=== PATIENT | female | born 1990 | race Caucasian/White ===

== ENCOUNTER 2016-05-26 01:34 | Emergency (ER) | payer MEDICAID ==
[2016-05-26] MEDS ORDERED: DEXAMETHASONE SOD PHOS INJ 10 MG/1 ML VIAL IM ONE (03:50)
[2016-05-26] MEDS ORDERED: IBUPROFEN 600 MG TABLET PO ONE (03:50)
--- NOTE | 2016-05-26 03:54 | ER Document Report ---
ED General - General Chief Complaint: Earache, sore throat Stated Complaint: EAR PAIN Notes: Patient is a 25-year-old female presents with 2 different complaints. First complaint is of runny nose cough congestion sore throat and left ear pain. Patient says her congestion was given some better and then tonight she applied some sweet oil 2 year. Pain got worse she had burning in her ear and into her jaw. She says she feels as if there are some bubbles behind her eardrum. No fevers. Patient's second complaint of some pain over lower back. Some both sides. She says she thinks it's mainly from coughing however she's had UTIs in the past as well and wants to make sure she is not having your tract infection. She denies abdominal pain. She denies dysuria. No urinary frequency. No other complaints at this time. No direct trauma to her back. TRAVEL OUTSIDE OF THE [place] IN LAST 30 DAYS: No - Related Data Allergies/Adverse Reactions: No Known Allergies Allergy (Verified 12/06/15 08:21) Past Medical History - Social History Smoking Status: Never Smoker Frequency of alcohol use: None Drug Abuse: None Family History: Reviewed & Not Pertinent Pulmonary Medical History: Reports: Hx Asthma Denies: Hx Tuberculosis Neurological Medical History: Reports: Hx Migraine. Denies: Hx Seizures Renal/ Medical History: Reports: Hx Pelvic Inflammatory Disease. Denies: Hx Peritoneal Dialysis GI Medical History: Reports: Hx Gastroesophageal Reflux Disease, Hx Ulcer Musculoskeltal Medical History: Reports Hx Musculoskeletal Trauma Skin Medical History: Reports Hx MRSA Psychiatric Medical History: Reports: Hx Anxiety, Hx Bipolar Disorder, Hx Depression Infectious Medical History: Reports: Hx MRSA - toe Past Surgical History: Reports: Hx Cholecystectomy - Immunizations Immunizations up to date: No Hx Diphtheria, Pertussis, Tetanus Vaccination: Yes - 10/2013 Hx Pneumococcal Vaccination: 01/09/13 Review of Systems - Review of Systems Notes: My Normal Review Basic REVIEW OF SYSTEMS: CONSTITUTIONAL : Denies fever, chills, or sweats. Denies recent illness. EENT: Nasal congestion CARDIOVASCULAR: Denies chest pain. RESPIRATORY: Recurrent cough GASTROINTESTINAL: Denies abdominal pain. Denies nausea, vomiting, or diarrhea. Denies constipation. Last BM: GENITOURINARY: Denies difficulty urinating, painful urination, burning, frequency, or blood in urine. MUSCULOSKELETAL: Low back pain SKIN: Denies rash or skin lesions. NEUROLOGICAL: Denies altered mental status or loss of consciousness. Has a headache. Denies weakness or paralysis or loss of use of either side. Denies problems with gait or speech. Denies sensory or motor loss. ALL OTHER SYSTEMS REVIEWED AND NEGATIVE. Physical Exam - Vital signs Vitals: Temp Pulse BP Pulse Ox 97.9 F 84 149/90 H 97 05/26/16 02:00 05/26/16 02:00 05/26/16 02:00 05/26/16 02:00 - Notes Notes: General Appearance: Well nourished, alert, cooperative, no acute distress, mild obvious discomfort. Vitals: reviewed, See vital signs table. Head: no swelling or tenderness to the head Eyes: PERRL, EOMI, Conjuctiva clear Mouth: No decreasd moisture Throat: No tonsillar inflammation, No airway obstruction, No lymphadenopathy Ears: Normal appearing tympanic membranes. Patient has just slight erythema of the ear canal looks well despite irritation from the well that she applied. Does not look consistent with infection. Is no abnormal drainage. To bag membrane is normal appearing.neck tenderness, No thyromegaly Lungs: No wheezing, No rales, No rhonci, No accessory muscle use, good air exchange bilaterally. Heart: Normal rate, Regular rythm, No murmur, no rub Abdomen: Normal BS, soft, No rigidity, No abdominal tenderness, No guarding, no rebound, no abdominal masses, no organomegaly Back: No reproducible pain to palpation of low back. Extremities: strength 5/5 in all extremities, good pulses in all extremities, no swelling or tenderness in the extremities, no edema. Skin: warm, dry, appropriate color, no rash Neuro: speech clear, oriented x 3, normal affect, responds appropriately to questions. Course - Vital Signs Vital signs: Temp Pulse Resp BP Pulse Ox 97.9 F 84 149/90 H 97 05/26/16 02:00 05/26/16 02:00 05/26/16 02:00 05/26/16 02:00 - Laboratory Laboratory results interpreted by me: 05/26/16 04:00 Ur Leukocyte Esterase SMALL H - Transfer of Care Notes: 05/26/16 05:32 Patient will be discharged home. Urinalysis negative for infection. I suspect her back pain is just related to all the coughing and straining. Her lung olivera are clear. She does have a lot of congestion with a dry cough. She does have loss sinus pressure. I will give her a dose of Decadron. Hopefully this will help relieve some of the pressure in her sinuses which will help with pain in her ear. There is no evidence of your infection on exam. Patient encouraged return to ER shows fevers or feels worse. Patient agrees with plan and will be discharged home. Dictation of this chart was performed using voice recognition software; therefore, there may be some unintended grammatical errors. Discharge - Discharge Clinical Impression: Back pain Qualifiers: Back pain location: low back pain Chronicity: acute Back pain laterality: bilateral Sciatica presence: without sciatica Qualified Code(s): M54.5 - Low back pain URI (upper respiratory infection) Qualifiers: URI type: unspecified URI Qualified Code(s): J06.9 - Acute upper respiratory infection, unspecified Condition: Good Disposition: HOME, SELF-CARE Additional Instructions: Please take over the counter pseudophed to help with your congestion. Please take Motrin or Advil for pain. Please take these medications with food. You have been given a shot of steroids here which will hopefully help your congestion and sinus pressure. Please return to the ER immediately if you have worsening pain, fevers, redness or swelling to your face or ear, worsening back pain, leg weakness or numbness, or if you feel that you are getting worse. Please follow up with your doctor in 2-3 days for reevaluation. Forms: Return to Work
[2016-05-26 04:52] LABS: APPEARANCE,URINE SLIGHTLY-CLOUDY; BILIRUBIN,URINE NEGATIVE (NEGATIVE); GLUCOSE, URINE NEGATIVE (NEGATIVE); KETONES,URINE NEGATIVE (NEGATIVE); LEUKOCYTE ESTERASE,URINE SMALL (NEGATIVE); NITRITE,URINE NEGATIVE (NEGATIVE); PROTEIN,URINE NEGATIVE (NEGATIVE); URINE SPECIFIC GRAVITY 1.023; UROBILINOGEN,URINE NEGATIVE mg/dL (<2.0)
[2016-05-26 05:22] VITALS: BP 123/78
== END 2016-05-26 05:22 | disposition home or self-care (01) ==
LOC: ER 01:34
DX: M54.5 Low back pain (principal); J06.9 Acute upper respiratory infection, unspecified; H92.02 Otalgia, left ear; K21.9 Gastro-esophageal reflux disease without esophagitis; Z86.14 Personal history of Methicillin resistant Staphylococcus aureus infection; Z90.49 Acquired absence of other specified parts of digestive tract
CPT/HCPCS: 99283; 96372; 81001; J3490; J1100

== ENCOUNTER 2016-10-19 14:20 | Emergency (ER) | payer MEDICAID ==
--- NOTE | 2016-10-19 14:52 | ER Document Report ---
ED Medical Screen (RME) - General Chief Complaint: Sore Throat Stated Complaint: SORE THROAT Time Seen by Provider: 10/19/16 14:51 Notes: This 25-year-old female patient comes emergency room complaining of a 10 day history of pain to the roof of her mouth and the back of her throat that comes and goes and hurts when she swallows. She also has cramping in the pelvic region when she urinates. She also complained of dizziness with nausea and vomiting. I have greeted and performed a rapid initial assessment of this patient. A comprehensive ED assessment and evaluation of the patient, analysis of test results and completion of the medical decision making process will be conducted by additional ED providers. TRAVEL OUTSIDE OF THE [place] IN LAST 30 DAYS: No - Related Data Allergies/Adverse Reactions: No Known Allergies Allergy (Verified 10/19/16 14:24) Past Medical History - Social History Chew tobacco use (# tins/day): No Frequency of alcohol use: None Drug Abuse: None Pulmonary Medical History: Reports: Hx Asthma Denies: Hx Tuberculosis Neurological Medical History: Reports: Hx Migraine. Denies: Hx Seizures Renal/ Medical History: Reports: Hx Pelvic Inflammatory Disease. Denies: Hx Peritoneal Dialysis GI Medical History: Reports: Hx Gastroesophageal Reflux Disease, Hx Ulcer Musculoskeltal Medical History: Reports Hx Musculoskeletal Trauma Skin Medical History: Reports Hx MRSA Psychiatric Medical History: Reports: Hx Anxiety, Hx Bipolar Disorder, Hx Depression Infectious Medical History: Reports: Hx MRSA - toe Past Surgical History: Reports: Hx Cholecystectomy - Immunizations Immunizations up to date: No Hx Diphtheria, Pertussis, Tetanus Vaccination: Yes - 10/2013 Physical Exam - Vital signs Vitals: Temp Pulse Resp BP Pulse Ox 98.5 F 93 16 132/75 H 96 10/19/16 14:24 10/19/16 14:24 10/19/16 14:24 10/19/16 14:24 10/19/16 14:24 Course - Vital Signs Vital signs: Temp Pulse Resp BP Pulse Ox 98.5 F 93 16 132/75 H 96 10/19/16 14:24 10/19/16 14:24 10/19/16 14:24 10/19/16 14:24 10/19/16 14:24
[2016-10-19 15:18] LABS: APPEARANCE,URINE CLEAR; BILIRUBIN,URINE NEGATIVE (NEGATIVE); GLUCOSE, URINE NEGATIVE (NEGATIVE); KETONES,URINE NEGATIVE (NEGATIVE); LEUKOCYTE ESTERASE,URINE NEGATIVE (NEGATIVE); NITRITE,URINE NEGATIVE (NEGATIVE); PROTEIN,URINE NEGATIVE (NEGATIVE); UROBILINOGEN,URINE NEGATIVE mg/dL (<2.0)
--- NOTE | 2016-10-19 15:24 | ER Document Report ---
ED General - General Chief Complaint: Sore Throat Stated Complaint: SORE THROAT Time Seen by Provider: 10/19/16 14:51 Notes: This 25-year-old female patient comes emergency room complaining of a 10 day history of pain to the roof of her mouth and the back of her throat that comes and goes and hurts when she swallows. She also has cramping in the pelvic region when she urinates. She also complained of dizziness with nausea and vomiting. TRAVEL OUTSIDE OF THE [place] IN LAST 30 DAYS: No - HPI Onset: Other - 10 days Onset/Duration: Gradual, Intermittent Quality of pain: Achy Associated symptoms: Earache, Headache. denies: Nausea, Vomiting, Shortness of breath Exacerbated by: Denies Relieved by: Denies Similar symptoms previously: No Recently seen / treated by doctor: No - Related Data Allergies/Adverse Reactions: No Known Allergies Allergy (Verified 10/19/16 14:24) Past Medical History - General Information source: Patient - Social History Smoking Status: Former Smoker Chew tobacco use (# tins/day): No Frequency of alcohol use: None Drug Abuse: None Lives with: Family Family History: Reviewed & Not Pertinent Pulmonary Medical History: Reports: Hx Asthma Denies: Hx Tuberculosis Neurological Medical History: Reports: Hx Migraine. Denies: Hx Seizures Renal/ Medical History: Reports: Hx Pelvic Inflammatory Disease. Denies: Hx Peritoneal Dialysis GI Medical History: Reports: Hx Gastroesophageal Reflux Disease, Hx Ulcer Musculoskeltal Medical History: Reports Hx Musculoskeletal Trauma Skin Medical History: Reports Hx MRSA Psychiatric Medical History: Reports: Hx Anxiety, Hx Bipolar Disorder, Hx Depression Infectious Medical History: Reports: Hx MRSA - toe Past Surgical History: Reports: Hx Cholecystectomy - Immunizations Immunizations up to date: No Hx Diphtheria, Pertussis, Tetanus Vaccination: Yes - 10/2013 Hx Pneumococcal Vaccination: 01/09/13 Review of Systems - Review of Systems Constitutional: No symptoms reported EENT: See HPI Cardiovascular: No symptoms reported Respiratory: No symptoms reported Gastrointestinal: No symptoms reported Genitourinary: See HPI Female Genitourinary: No symptoms reported. denies: Vaginal discharge, Vaginal bleeding, Vaginal odor, Painful intercourse Musculoskeletal: No symptoms reported Skin: No symptoms reported Hematologic/Lymphatic: No symptoms reported Neurological/Psychological: No symptoms reported Physical Exam - Vital signs Vitals: Temp Pulse Resp BP Pulse Ox 98.5 F 93 16 132/75 H 96 10/19/16 14:24 10/19/16 14:24 10/19/16 14:24 10/19/16 14:24 10/19/16 14:24 Interpretation: Normal - General General appearance: Appears well, Alert In distress: None Notes: morbidly obese - HEENT Head: Normocephalic, Atraumatic Eyes: Normal Conjunctiva: Normal Pupils: PERRL Tympanic membrane: Serous effusion - right Sinus: Normal Nasal: Normal Mucous membranes: Moist Pharynx: Normal Neck: Normal, Supple. No: Lymphadenopathy - Respiratory Respiratory status: No respiratory distress Chest status: Nontender Breath sounds: Normal Chest palpation: Normal - Cardiovascular Rhythm: Regular Heart sounds: Normal auscultation Murmur: No - Abdominal Inspection: Normal Distension: No distension Bowel sounds: Normal Tenderness: Tender - mild suprapubic tenderness. No: Adams's sign, Guarding Organomegaly: No organomegaly - Back Back: Normal, Nontender - Extremities General upper extremity: Normal inspection, Nontender, Normal color, Normal ROM , Normal temperature General lower extremity: Normal inspection, Nontender, Normal color, Normal ROM , Normal temperature, Normal weight bearing. No: Viviana's sign - Neurological Neuro grossly intact: Yes Cognition: Normal Orientation: AAOx4 [place] Coma Scale Eye Opening: Spontaneous [place] Coma Scale Verbal: Oriented [place] Coma Scale Motor: Obeys Commands [place] Coma Scale Total: 15 Speech: Normal Motor strength normal: LUE, RUE, LLE, RLE Sensory: Normal - Psychological Associated symptoms: Normal affect, Normal mood - Skin Skin Temperature: Warm Skin Moisture: Dry Skin Color: Normal Course - Re-evaluation Re-evalutation: 10/19/16 16:12 rurinalysis unremarkable, UHCG negative. rapid strep negative. wet mount + BV. all results reviewed with patient. based on history and physical exam, I estimate low risk for ludwigs, peritonsillar abscess, acute appendicitis, bowel obstruction, perforated diverticua, incarcerated hernia, PID, ectopic or tub-ovarian abscess. There is no evidence of peritonitis, sepsis or toxicity. pt is stable for discharge and f/u with primary care. - Vital Signs Vital signs: Temp Pulse Resp BP Pulse Ox 98.5 F 93 16 132/75 H 96 10/19/16 14:24 10/19/16 14:24 10/19/16 14:24 10/19/16 14:24 10/19/16 14:24 - Laboratory Laboratory results interpreted by me: 10/19/16 14:56 Urine Ascorbic Acid 40 H Discharge - Discharge Clinical Impression: Sore throat, Bacterial vaginosis Condition: Stable Disposition: HOME, SELF-CARE Instructions: Sore Throat ([facility]), Vaginosis, Bacterial ([facility]), Antibiotic Therapy ([facility]) Additional Instructions: Your rapid strep is negative Throat culture is pending. We will call you if further treatment is needed Recommend antihistamine/decongestant, lozenges and salt water gargles for discomfort Your wet mount is positive for Bacterial Vaginosis, Take antibiotic as prescribed Follow up with primary care if symptoms persist Return to ER for any worsening Prescriptions: Fluconazole [Diflucan] 150 mg PO ONCE PRN #1 tablet PRN Reason: Metronidazole [Flagyl 500 mg Tablet] 500 mg PO BID #14 tablet
[2016-10-19 16:35] VITALS: BP 119/70
[2016-10-19 16:47] LABS: CHLAM PCR NOT DETECTED (NOT DETECT)
== END 2016-10-19 16:36 | disposition home or self-care (01) ==
LOC: ER 14:20
DX: J02.9 Acute pharyngitis, unspecified (principal); N76.0 Acute vaginitis; B96.89 Other specified bacterial agents as the cause of diseases classified elsewhere; H92.09 Otalgia, unspecified ear; R51 Headache; Z86.14 Personal history of Methicillin resistant Staphylococcus aureus infection; Z90.49 Acquired absence of other specified parts of digestive tract
CPT/HCPCS: 81001; 81025; 87070; 87210; 87491; 87591; 87880; 99283

== ENCOUNTER 2016-12-02 16:29 | Emergency (ER) | payer MEDICAID ==
[2016-12-02 18:54] LABS: ABSOLUTE EOSINOPHILS # (AUTO) 0.2 10^3/uL (0.0-0.6); ABSOLUTE LYMPHOCYTES (AUTO) 2.3 10^3/uL (0.5-4.7); ABSOLUTE MONOCYTES (AUTO) 0.7 10^3/uL (0.1-1.4); ABSOLUTE NEUT (AUTO) 4.7 10^3/uL (1.7-8.2); BASOPHILS % (AUTO) 0.3 % (0-2); EOSINOPHILS % (AUTO) 2.6 % (0-6); HEMATOCRIT 42.4 % (36.0-47.0); HEMOGLOBIN 14.2 g/dL (12.0-15.5); HGB HCT DIFFERENCE 0.2; LYMPHOCYTES % (AUTO) 29.1 % (13-45); MEAN CORPUSCULAR HEMOGLOBIN 31.1 pg (27.0-33.4); MEAN CORPUSCULAR HGB CONC 33.4 g/dL (32.0-36.0); MEAN CORPUSCULAR VOLUME 93 fl (80-97); MONOCYTES % (AUTO) 8.4 % (3-13); RED BLOOD COUNT 4.55 10^6/uL (3.72-5.28); SEGMENTED NEUTROPHILS % (AUTO) 59.6 % (42-78); WHITE BLOOD COUNT 7.9 10^3/uL (4.0-10.5)
[2016-12-02 18:56] LABS: APPEARANCE,URINE CLEAR; BILIRUBIN,URINE NEGATIVE (NEGATIVE); GLUCOSE, URINE NEGATIVE (NEGATIVE); KETONES,URINE NEGATIVE (NEGATIVE); LEUKOCYTE ESTERASE,URINE NEGATIVE (NEGATIVE); NITRITE,URINE NEGATIVE (NEGATIVE); PROTEIN,URINE NEGATIVE (NEGATIVE); URINE SPECIFIC GRAVITY 1.028; UROBILINOGEN,URINE NEGATIVE mg/dL (<2.0)
[2016-12-02 19:11] LABS: ALANINE AMINOTRANSFERASE 59 U/L (9-52); ALBUMIN 4.1 g/dL (3.5-5.0); ALKALINE PHOSPHATASE 153 U/L (38-126); ANION GAP 11 (5-19); ASPARTATE AMINO TRANSFERASE 36 U/L (14-36); BILIRUBIN,DIRECT 0.2 mg/dL (0.0-0.4); BILIRUBIN,TOTAL 0.9 mg/dL (0.2-1.3); BLOOD UREA NITROGEN 10 mg/dL (7-20); CALCIUM 10.2 mg/dL (8.4-10.2); CARBON DIOXIDE 30 mmol/L (22-30); CHLORIDE 105 mmol/L (98-107); CREATININE RESULT 0.81 mg/dL (0.52-1.25); GLUCOSE 84 mg/dL (75-110); LIPASE 89.5 U/L (23-300); POTASSIUM 4.3 mmol/L (3.6-5.0); SODIUM 146.3 mmol/L (137-145); TOTAL PROTEIN 6.6 g/dL (6.3-8.2)
--- NOTE | 2016-12-02 19:19 | ER Document Report ---
ED General - General Chief Complaint: Abdominal Pain Stated Complaint: ABDOMINAL PAIN,DIARRHEA,NAUSEA Time Seen by Provider: 12/02/16 17:57 Mode of Arrival: Ambulatory Information source: Patient Notes: Patient complains of 2 days of epigastric pain. It is a cramping and sharp sensation. It does radiate to her back. It is worse with eating or drinking and better with rest. It is been severe and intermittent. She denies any vaginal discharge or bleeding. She is currently breast-feeding. She states she has had a previous cholecystectomy and multiple similar abdominal pains but is never been referred to gastroneurology. TRAVEL OUTSIDE OF THE [place] IN LAST 30 DAYS: No - Related Data Allergies/Adverse Reactions: No Known Allergies Allergy (Verified 12/02/16 16:43) Past Medical History - General Information source: Patient - Social History Smoking Status: Never Smoker Frequency of alcohol use: Occasional Drug Abuse: None Family History: Reviewed & Not Pertinent Pulmonary Medical History: Reports: Hx Asthma Denies: Hx Tuberculosis Neurological Medical History: Reports: Hx Migraine. Denies: Hx Seizures Renal/ Medical History: Reports: Hx Pelvic Inflammatory Disease. Denies: Hx Peritoneal Dialysis GI Medical History: Reports: Hx Gastroesophageal Reflux Disease, Hx Ulcer Musculoskeltal Medical History: Reports Hx Musculoskeletal Trauma Skin Medical History: Reports Hx MRSA Psychiatric Medical History: Reports: Hx Anxiety, Hx Bipolar Disorder, Hx Depression Infectious Medical History: Reports: Hx MRSA - toe Past Surgical History: Reports: Hx Cholecystectomy - Immunizations Immunizations up to date: No Hx Diphtheria, Pertussis, Tetanus Vaccination: Yes - 10/2013 Hx Pneumococcal Vaccination: 01/09/13 Review of Systems - Review of Systems Constitutional: denies: Chills, Fever Cardiovascular: denies: Chest pain, Palpitations Respiratory: denies: Cough, Short of breath -: Yes All other systems reviewed and negative Physical Exam - Vital signs Vitals: Temp Pulse BP Pulse Ox 98.7 F 101 H 135/86 H 93 12/02/16 16:42 12/02/16 16:42 12/02/16 16:42 12/02/16 16:42 Interpretation: Hypertensive - General General appearance: Appears well, Alert - HEENT Head: Normocephalic, Atraumatic Eyes: Normal Pupils: PERRL - Respiratory Respiratory status: No respiratory distress Chest status: Nontender Breath sounds: Normal Chest palpation: Normal - Cardiovascular Rhythm: Regular Heart sounds: Normal auscultation Murmur: No - Abdominal Inspection: Normal Distension: No distension Bowel sounds: Normal Tenderness: Nontender Organomegaly: No organomegaly - Back Back: Normal, Nontender - Extremities General upper extremity: Normal inspection, Nontender, Normal color, Normal ROM , Normal temperature General lower extremity: Normal inspection, Nontender, Normal color, Normal ROM , Normal temperature, Normal weight bearing. No: Viviana's sign - Neurological Neuro grossly intact: Yes Cognition: Normal Orientation: AAOx4 [place] Coma Scale Eye Opening: Spontaneous [place] Coma Scale Verbal: Oriented [place] Coma Scale Motor: Obeys Commands [place] Coma Scale Total: 15 Speech: Normal Motor strength normal: LUE, RUE, LLE, RLE Sensory: Normal - Psychological Associated symptoms: Normal affect, Normal mood - Skin Skin Temperature: Warm Skin Moisture: Dry Skin Color: Normal Course - Vital Signs Vital signs: Temp Pulse Resp BP Pulse Ox 98.7 F 101 H 135/86 H 93 12/02/16 16:42 12/02/16 16:42 12/02/16 16:42 12/02/16 16:42 - Laboratory Result Diagrams: 12/02/16 18:30 12/02/16 18:30 Laboratory results interpreted by me: 12/02/16 12/02/16 18:30 18:30 Sodium 146.3 H ALT 59 H Alkaline Phosphatase 153 H Urine Ascorbic Acid 40 H Discharge - Discharge Clinical Impression: Acute abdominal pain Condition: Stable Disposition: HOME, SELF-CARE Instructions: Abdominal Pain ([facility]), Oral Narcotic Medication ([facility]) Additional Instructions: Your blood pressure is mildly elevated please have this rechecked within 1 week by your doctor. Please discuss referral to gastroenterology with your doctor. Prescriptions: Hydrocodone/Acetaminophen [[place] 5-325 mg Tablet] 1 tab PO Q6 PRN #8 tablet PRN Reason: Forms: Elevated Blood Pressure
[2016-12-02 19:35] VITALS: BP 134/81
== END 2016-12-02 19:36 | disposition home or self-care (01) ==
LOC: ER 16:29
DX: R10.13 Epigastric pain (principal); J45.909 Unspecified asthma, uncomplicated; Z87.42 Personal history of other diseases of the female genital tract; Z90.49 Acquired absence of other specified parts of digestive tract; Z87.19 Personal history of other diseases of the digestive system; Z86.14 Personal history of Methicillin resistant Staphylococcus aureus infection
CPT/HCPCS: 36415; 80053; 81001; 81025; 83690; 85025; 99284

== ENCOUNTER 2017-02-07 10:49 | Emergency (ER) | payer MEDICAID ==
[2017-02-07 10:54] VITALS: BP 127/85
[2017-02-07] MEDS ORDERED: ONDANSETRON 4 MG TAB.RAPDIS PO ONE (11:59)
[2017-02-07] MEDS ORDERED: AMOXICILLIN TRIHYDRATE 500 MG CAPSULE PO ONE (12:00)
[2017-02-07] MEDS ORDERED: ACETAMINOPHEN 325 MG TABLET PO ONE (12:00)
--- NOTE | 2017-02-07 12:02 | ER Document Report ---
HPI - HPI Patient complains to provider of: Left ear pain Onset: This morning Onset/Duration: Gradual Quality of pain: Achy Pain Level: 3 Context: Patient presents complaining of left ear and jaw pain since 5:00 this morning. Patient states the pain is made her nauseous and she has retched although not vomited. Patient denies any diarrhea. Patient does report fever of 1012 at home this morning. Patient did take Motrin at home to treat her pain symptoms. Associated Symptoms: Earache, Fever, Nausea. denies: Nonproductive cough, Productive cough, Vomiting, Sore throat Exacerbated by: Denies Relieved by: Denies Similar symptoms previously: Yes Recently seen / treated by doctor: No - ROS ROS below otherwise negative: Yes Systems Reviewed and Negative: Yes All other systems reviewed and negative - CONSTITUTIONAL Constitutional: REPORTS: Fever. DENIES: Chills - EENT EENT: REPORTS: Ear Pain. DENIES: Sore Throat, Eye problems - NEURO Neurology: DENIES: Headache, Weakness, Vision blurred, Dizzinesss / Vertigo - CARDIOVASCULAR Cardiovascular: DENIES: Chest pain - RESPIRATORY Respiratory: DENIES: Trouble Breathing, Coughing - GASTROINTESTINAL Gastrointestinal: REPORTS: Nausea. DENIES: Abdominal Pain, Black / Bloody Stools - URINARY Urinary: DENIES: Dysuria, Urgency, Frequency - MUSCULOSKELETAL Musculoskeletal: DENIES: Extremity pain - DERM Skin Color: Normal Skin Problems: None Past Medical History - General Information source: Patient - Social History Smoking Status: Never Smoker Chew tobacco use (# tins/day): No Frequency of alcohol use: None Drug Abuse: None Occupation: None Lives with: Family Family History: Reviewed & Not Pertinent Patient has suicidal ideation: No Patient has homicidal ideation: No Pulmonary Medical History: Reports: Hx Asthma Denies: Hx Tuberculosis Neurological Medical History: Reports: Hx Migraine. Denies: Hx Seizures Renal/ Medical History: Reports: Hx Pelvic Inflammatory Disease. Denies: Hx Peritoneal Dialysis GI Medical History: Reports: Hx Gastroesophageal Reflux Disease, Hx Ulcer Musculoskeltal Medical History: Reports Hx Musculoskeletal Trauma Skin Medical History: Reports Hx MRSA Psychiatric Medical History: Reports: Hx Anxiety, Hx Bipolar Disorder, Hx Depression Infectious Medical History: Reports: Hx MRSA - toe Past Surgical History: Reports: Hx Cholecystectomy - Immunizations Immunizations up to date: No Hx Diphtheria, Pertussis, Tetanus Vaccination: Yes - 10/2013 Hx Pneumococcal Vaccination: 01/09/13 Vertical Provider Document - CONSTITUTIONAL Agree With Documented VS: Yes Exam Limitations: No Limitations General Appearance: WD/WN, No Apparent Distress - INFECTION CONTROL TRAVEL OUTSIDE OF THE [place] IN LAST 30 DAYS: No - HEENT HEENT: Atraumatic, Normocephalic, Tympanic Membrane Red, Tympanic Membrane Bulging. negative: Pharyngeal Exudate, Pharyngeal Tenderness, Pharyngeal Erythema Notes: No mastoid tenderness or swelling - NECK Neck: Normal Inspection, Supple. negative: Lymphadenopathy-Left, Lymphadenopathy-Right - RESPIRATORY Respiratory: Breath Sounds Normal, No Respiratory Distress O2 Sat by Pulse Oximetry: 99 - CARDIOVASCULAR Cardiovascular: Regular Rate, Regular Rhythm - GI/ABDOMEN Gastrointestinal: Abdomen Soft, Abdomen Non-Tender - BACK Back: Normal Inspection. negative: CVA Tenderness-Right, CVA Tenderness-Left - MUSCULOSKELETAL/EXTREMETIES Musculoskeletal/Extremeties: MAEW - NEURO Level of Consciousness: Awake, Alert, Appropriate Motor/Sensory: No Motor Deficit - DERM Integumentary: Warm, Dry Course - Vital Signs Vital signs: Temp Pulse Resp BP Pulse Ox 98.5 F 81 18 127/85 H 99 02/07/17 10:53 02/07/17 10:53 02/07/17 10:53 02/07/17 10:53 02/07/17 10:53 Discharge - Discharge Clinical Impression: Nausea Otitis media Qualifiers: Otitis media type: unspecified Chronicity: acute Qualified Code(s): H66.90 - Otitis media, unspecified, unspecified ear Condition: Stable Disposition: HOME, SELF-CARE Instructions: Acetaminophen, Amoxicillin ([facility]), Otitis Media ([facility]) Additional Instructions: Return immediately for any new or worsening symptoms Followup with your primary care provider, call tomorrow to make a followup appointment Follow-up with an ears nose and throat specialist for any continued problems Prescriptions: Amoxicillin 500 mg PO TID #30 tablet Naproxen [Naprosyn 250 Nmg Tablet] 1 tab PO BID #14 tablet Referrals: [facility] [Provider Group] - Follow up as needed [facility] [Provider Group] - Follow up as needed
== END 2017-02-07 12:13 | disposition home or self-care (01) ==
LOC: ER 10:49
DX: H66.90 Otitis media, unspecified, unspecified ear (principal); H92.02 Otalgia, left ear; R11.0 Nausea; R50.9 Fever, unspecified; R68.84 Jaw pain; J45.909 Unspecified asthma, uncomplicated; Z86.14 Personal history of Methicillin resistant Staphylococcus aureus infection
CPT/HCPCS: 99283; J3490; S0119

== ENCOUNTER 2017-05-24 19:06 | Emergency (ER) | payer MEDICAID ==
--- NOTE | 2017-05-24 19:47 | ER Document Report ---
ED GI/ - General Chief Complaint: Vaginal Bleeding Stated Complaint: VAGINAL SPOTTING/CRAMPING Time Seen by Provider: 05/24/17 19:42 Mode of Arrival: Ambulatory Information source: Patient Notes: 26 yo ex smoker female started pink spotting and cramping after moving boxes last night until this morning. Intermittent now. Thinks she 6-8 weeks, not sure. Went to health dept to confirm last week. . No dysuria, no vaginal discharge, normal paps, chlamydia as teenager, no ovarian cyst. No sex recently. Also c/o right anterior lower leg muscle, thinks its a pulled muscle, started when sandel slipped and knee went a "weird" way and it has been hurting ever since. TRAVEL OUTSIDE OF THE [place] IN LAST 30 DAYS: No - Related Data Allergies/Adverse Reactions: No Known Allergies Allergy (Verified 02/07/17 10:49) Past Medical History - General Information source: Patient Last Menstrual Period: 03/2017 - Social History Smoking Status: Never Smoker Frequency of alcohol use: None Drug Abuse: None Family History: Reviewed & Not Pertinent Patient has suicidal ideation: No Patient has homicidal ideation: No Pulmonary Medical History: Reports: Hx Asthma Denies: Hx Tuberculosis Neurological Medical History: Reports: Hx Migraine. Denies: Hx Seizures Renal/ Medical History: Reports: Hx Pelvic Inflammatory Disease. Denies: Hx Peritoneal Dialysis GI Medical History: Reports: Hx Gastroesophageal Reflux Disease, Hx Ulcer Musculoskeltal Medical History: Reports Hx Musculoskeletal Trauma Skin Medical History: Reports Hx MRSA Psychiatric Medical History: Reports: Hx Anxiety, Hx Bipolar Disorder, Hx Depression Infectious Medical History: Reports: Hx MRSA - toe Past Surgical History: Reports: Hx Cholecystectomy - Immunizations Immunizations up to date: No Hx Diphtheria, Pertussis, Tetanus Vaccination: Yes - 10/2013 Hx Pneumococcal Vaccination: 01/09/13 Review of Systems - Review of Systems Constitutional: No symptoms reported EENT: No symptoms reported Cardiovascular: No symptoms reported Respiratory: No symptoms reported Gastrointestinal: No symptoms reported Genitourinary: No symptoms reported Female Genitourinary: See HPI Musculoskeletal: No symptoms reported Skin: No symptoms reported Hematologic/Lymphatic: No symptoms reported Neurological/Psychological: No symptoms reported Physical Exam - Vital signs Vitals: Temp Pulse Resp BP Pulse Ox 98.2 F 114 H 18 144/83 H 96 05/24/17 19:23 05/24/17 19:23 05/24/17 19:23 05/24/17 19:23 05/24/17 19:23 Interpretation: Normal - Notes Notes: obese - General General appearance: Appears well, Alert - HEENT Head: Normocephalic, Atraumatic Eyes: Normal Conjunctiva: Normal Pupils: PERRL Neck: Supple. No: Lymphadenopathy - Respiratory Respiratory status: No respiratory distress Chest status: Nontender Breath sounds: Normal Chest palpation: Normal - Cardiovascular Rhythm: Regular Heart sounds: Normal auscultation Murmur: No - Abdominal Inspection: Normal Distension: No distension Bowel sounds: Normal Tenderness: Nontender. No: Tender Organomegaly: No organomegaly - Back Back: Normal, Nontender. No: CVA tenderness - Extremities General upper extremity: Normal inspection, Nontender, Normal color, Normal ROM , Normal temperature General lower extremity: Normal inspection, Nontender, Normal color, Normal ROM , Normal temperature, Normal weight bearing. No: Viviana's sign Thigh: Tender - tender over distal anterior right thigh muscle, no erythema or swelling - Neurological Neuro grossly intact: Yes Cognition: Normal Orientation: AAOx4 [place] Coma Scale Eye Opening: Spontaneous [place] Coma Scale Verbal: Oriented Lyndsey Coma Scale Motor: Obeys Commands [place] Coma Scale Total: 15 Speech: Normal Motor strength normal: LUE, RUE, LLE, RLE Sensory: Normal - Psychological Associated symptoms: Normal affect, Normal mood - Skin Skin Temperature: Warm Skin Moisture: Dry Skin Color: Normal Course - Re-evaluation Re-evalutation: 05/24/17 22:01 Wet prep shows bacterial vaginosis so I will treat with metronidazole 500 mg twice daily for 1 week, gonorrhea and Chlamydia test are pending she will call me in several hours for those results. The ultrasound shows a 5 week gestational sac in the cervical canal without yolk sac or pole. I explained to this patient about the impending miscarriage. Blood type is A positive so she does not need a RhoGam, urinalysis is negative. Patient states that her pain is mild but she would appreciate pain medication and she is still only spotting no heavy bleeding or clotting. We will have the patient repeat her serum quantitative test on Thursday. 05/24/17 22:05 Diastolic blood pressure is 87 I have asked the patient to repeat it tomorrow because that is elevated. There is no protein in the urine. I suspect that this is due to stress, although I reviewed some of her previous blood pressures in the emergency department such as January 2017 and the diastolic was 83 and 85. 05/24/17 22:13 - Vital Signs Vital signs: Temp Pulse Resp BP Pulse Ox 98.6 F 88 16 133/87 H 99 05/24/17 22:08 05/24/17 22:08 05/24/17 22:08 05/24/17 22:08 05/24/17 22:08 - Laboratory Result Diagrams: 05/24/17 20:22 Laboratory results interpreted by me: 05/24/17 05/24/17 05/24/17 20:22 20:22 20:22 RDW 14.1 H Beta HCG, Quant 265.19 H Urine Urobilinogen 2.0 H Ur Leukocyte Esterase SMALL H Discharge - Discharge Clinical Impression: Vaginal bleeding, Incomplete miscarriage, Bacterial vaginosis, Elevated blood pressure reading, right anterior thigh muscle strain Condition: Good Disposition: HOME, SELF-CARE Instructions: Metronidazole ([facility]), Miscarriage Impending ([facility]), [facility], Oral Narcotic Medication ([facility]), Vaginosis, Bacterial ([facility]), [facility] ([facility]), Muscle Strain ([facility]) Additional Instructions: Return to the emergency room if you have worsening pain or heavy vaginal bleeding recheck your blood pressure tomorrow, the bottom number is elevated which it has been here in the ER in the past. You may need blood pressure medication. Follow-up repeat serum quantitative test on Thursday to make sure that it is going down Follow-up with the health department Prescriptions: Hydrocodone Bit/Acetaminophen [Hydrocodon-Acetaminophen 5-325] 1 each PO Q4HP PRN #10 tablet PRN Reason: Metronidazole [Flagyl 500 mg Tablet] 500 mg PO BID #14 tablet Forms: Follow-Up Laboratory Testing Referrals: JOEL MCCLOUD PA-C [Primary Care Provider] - Follow up tomorrow (for your blood pressure )
[2017-05-24 20:49] LABS: ABSOLUTE EOSINOPHILS # (AUTO) 0.4 10^3/uL (0.0-0.6); ABSOLUTE LYMPHOCYTES (AUTO) 2.5 10^3/uL (0.5-4.7); ABSOLUTE MONOCYTES (AUTO) 0.7 10^3/uL (0.1-1.4); ABSOLUTE NEUT (AUTO) 5.8 10^3/uL (1.7-8.2); BASOPHILS % (AUTO) 0.4 % (0-2); EOSINOPHILS % (AUTO) 4.1 % (0-6); HEMATOCRIT 39.6 % (36.0-47.0); HEMOGLOBIN 13.4 g/dL (12.0-15.5); MEAN CORPUSCULAR HEMOGLOBIN 30.9 pg (27.0-33.4); MEAN CORPUSCULAR HGB CONC 33.9 g/dL (32.0-36.0); MEAN CORPUSCULAR VOLUME 91 fl (80-97); MONOCYTES % (AUTO) 7.1 % (3-13); PLATELET COUNT 200 10^3/uL (150-450); RED BLOOD COUNT 4.34 10^6/uL (3.72-5.28); RED CELL DISTRIBUTION WIDTH 14.1 % (11.5-14.0); SEGMENTED NEUTROPHILS % (AUTO) 61.4 % (42-78); TOTAL CELLS COUNTED % (AUTO) 100 %; WHITE BLOOD COUNT 9.4 10^3/uL (4.0-10.5)
[2017-05-24 20:50] LABS: T.VAGINALIS (WET MOUNT) NO TRICHOMONAS SEEN; YEAST (WET MOUNT) BUDDING YEAST SEEN
[2017-05-24 20:51] LABS: BACTERIA (WET MOUNT) 4+ BACTERIA SEEN; EPITHELIALS (WET MOUNT) 4+ EPITHELIALS SEEN; RBCS (WET MOUNT) NO RBCS SEEN; WBCS (WET MOUNT) 3+ WBCS SEEN
[2017-05-24 21:15] LABS: BILIRUBIN,URINE NEGATIVE (NEGATIVE); COLOR,URINE YELLOW; GLUCOSE, URINE NEGATIVE (NEGATIVE); KETONES,URINE NEGATIVE (NEGATIVE); LEUKOCYTE ESTERASE,URINE SMALL (NEGATIVE); NITRITE,URINE NEGATIVE (NEGATIVE); PROTEIN,URINE NEGATIVE (NEGATIVE)
[2017-05-24 21:18] LABS: APPEARANCE,URINE CLEAR
--- NOTE | 2017-05-24 21:44 | RADIOLOGY REPORT (SQ) ---
EXAM DESCRIPTION: U/S OB TRANSVAG W/DOPPLER COMPLETED DATE/TIME: 05/24/2017 9:33 pm REASON FOR STUDY: spotting COMPARISON: None. TECHNIQUE: Transabdominal static and realtime grayscale images acquired of the pelvis. Additional se lected spectral and color Doppler images recorded. All images stored on PACs. bHCG: Not available. LIMITATIONS: None. FINDINGS: UTERUS: No masses. No anomalies. GESTATIONAL SAC: Within the cervical canal. 5 weeks 1 day YOLK SAC: No POLE: No RIGHT ADNEXA: Ovary not identified. No adnexal free fluid. No adnexal masses. LEFT ADNEXA: Normal ovary with normal vascular flow. No adnexal free fluid. No adnexal masses. FREE FLUID: None. OTHER: No other significant finding. IMPRESSION: Gestational sac within the cervical canal. BHCG LEVEL APPROPRIATE FOR ENDOMETRIAL FINDINGS. CONSIDER F/U BHCG AND/OR ULTRASOUND FOR VERIFICATION AND TO EXCLUDE ECTOPIC . Trimester of : First - 0 to 13 weeks. TECHNICAL DOCUMENTATION: JOB ID: [id number]- All Rights Reserved Reading location - IP/workstation name: [email or web address]
[2017-05-24] MEDS ORDERED: HYDROCODONE/ACETAMINOPHEN 5-325 MG (6 TAB/ER DISP) PO PRN (21:57)
[2017-05-24] MEDS ORDERED: ONDANSETRON ODT 4 MG TAB (6 TAB/ER DISP) PO PRN (22:00)
[2017-05-24 22:08] VITALS: BP 133/87
[2017-05-24 22:23] LABS: CHLAM PCR NOT DETECTED (NOT DETECT); GON PCR NOT DETECTED (NOT DETECT)
== END 2017-05-24 22:22 | disposition home or self-care (01) ==
LOC: ER 19:06
DX: O03.4 Incomplete spontaneous abortion without complication (principal); B96.89 Other specified bacterial agents as the cause of diseases classified elsewhere; R03.0 Elevated blood-pressure reading, without diagnosis of hypertension; S76.811A Strain of other specified muscles, fascia and tendons at thigh level, right thigh, initial encounter; M79.604 Pain in right leg; X50.9XXA Other and unspecified overexertion or strenuous movements or postures, initial encounter; W01.0XXA Fall on same level from slipping, tripping and stumbling without subsequent striking against object, initial encounter; Z3A.00 Weeks of gestation of pregnancy not specified
CPT/HCPCS: 36415; 76817; 81001; 84702; 85025; 86900; 86901; 87086; 87210; 87491; 87591; 93976; 99284

== ENCOUNTER → 2017-05-26 | Outpatient (CLI) | payer MEDICAID | LOC: LAB 08:33 | PROVIDERS: ATTEND Nurse Practitioner Family | DX: O20.9 Hemorrhage in early pregnancy, unspecified (principal) | CPT/HCPCS: 36415; 84702 ==

== ENCOUNTER 2017-07-06 06:48 | Emergency (ER) | payer MEDICAID ==
[2017-07-06 06:55] VITALS: BP 134/78
--- NOTE | 2017-07-06 07:05 | ER Document Report ---
ED General - General Chief Complaint: Ear Pain Stated Complaint: LEFT EAR PAIN Mode of Arrival: Ambulatory Information source: Patient TRAVEL OUTSIDE OF THE [place] IN LAST 30 DAYS: No - HPI Patient complains to provider of: left ear pain x 3 days. pt is 10 weeks . no vag bleed,pain Onset: Other - x 2 days ago Onset/Duration: Sudden Quality of pain: Achy, Fullness Severity: Moderate Pain Level: 2 Associated symptoms: Allergy/hay fever, Chills, Earache, Rhinnorhea. denies: Body/muscle aches, Chest pain, Nonproductive cough, Productive cough, Diarrhea, Drooling, Fever, Headache, Hoarseness, Hurts to breath, Leg swelling, Nausea, Vomiting, Sinus pain/drainage, Shortness of breath, Slow to respond, Sore throat , Sweating, Weakness, Other Exacerbated by: Denies Relieved by: Denies Similar symptoms previously: Yes - hx of seasonal allergies Recently seen / treated by doctor: No - Related Data Allergies/Adverse Reactions: No Known Allergies Allergy (Verified 02/07/17 10:49) Past Medical History - General Information source: Patient - Social History Smoking Status: Former Smoker Chew tobacco use (# tins/day): No Frequency of alcohol use: None Drug Abuse: None Family History: Reviewed & Not Pertinent Patient has suicidal ideation: No Patient has homicidal ideation: No Pulmonary Medical History: Reports: Hx Asthma Denies: Hx Tuberculosis Neurological Medical History: Reports: Hx Migraine. Denies: Hx Seizures Renal/ Medical History: Reports: Hx Pelvic Inflammatory Disease. Denies: Hx Peritoneal Dialysis GI Medical History: Reports: Hx Gastroesophageal Reflux Disease, Hx Ulcer Musculoskeltal Medical History: Reports Hx Musculoskeletal Trauma Skin Medical History: Reports Hx MRSA Psychiatric Medical History: Reports: Hx Anxiety, Hx Bipolar Disorder, Hx Depression Infectious Medical History: Reports: Hx MRSA - toe Past Surgical History: Reports: Hx Cholecystectomy - Immunizations Immunizations up to date: No Hx Diphtheria, Pertussis, Tetanus Vaccination: Yes - 10/2013 Hx Pneumococcal Vaccination: 01/09/13 Review of Systems - Review of Systems Constitutional: No symptoms reported EENT: See HPI Cardiovascular: No symptoms reported Respiratory: No symptoms reported Gastrointestinal: No symptoms reported Genitourinary: No symptoms reported Female Genitourinary: No symptoms reported Musculoskeletal: No symptoms reported Skin: No symptoms reported Hematologic/Lymphatic: No symptoms reported Neurological/Psychological: No symptoms reported Physical Exam - Vital signs Vitals: Temp Pulse Resp BP Pulse Ox 97.7 F 86 16 134/78 H 99 07/06/17 06:54 07/06/17 06:54 07/06/17 06:54 07/06/17 06:54 07/06/17 06:54 - Notes Notes: PHYSICAL EXAMINATION: GENERAL: Well-appearing, well-nourished and in no acute distress. HEAD: Atraumatic, normocephalic. EYES: Pupils equal round and reactive to light, extraocular movements intact, conjunctiva are normal. ENT: TM on Left with erythema and intact. Right TM with serous effusion, no erythema. Nares boggy bilaterally, oropharynx with erythema without exudates. Moist mucous membranes. NECK: Normal range of motion, supple without lymphadenopathy LUNGS: Breath sounds clear to auscultation bilaterally and equal. No wheezes rales or rhonchi. HEART: Regular rate and rhythm without murmurs ABDOMEN: Soft, nontender, nondistended abdomen. No guarding, no rebound. No masses appreciated. Female : deferred Musculoskeletal: Normal range of motion, no pitting or edema. No cyanosis. NEUROLOGICAL: Cranial nerves grossly intact. Normal speech, normal gait. Normal sensory, motor exams PSYCH: Normal mood, normal affect. SKIN: Warm, Dry, normal turgor, no rashes or lesions noted. Course - Re-evaluation Re-evalutation: 07/06/17 08:20 Presentation is most consistent with an acute otitis media. Clinical history as well as exam is most consistent with this diagnosis. Based on history and examination do not suspect an acute meningitis, encephalitis, peritonsillar abscess, or retropharyngeal abscess. Child is otherwise well in appearance, no acute distress. Vitals otherwise within normal limits. The patient will be started on amoxicillin twice a day for 10 days. At this time will discharge with return precautions and follow-up recommendations. Verbal discharge instructions given a the bedside to the parents and opportunity for questions given. Medication warnings reviewed. Parents are in agreement with this plan and has verbalized understanding of return precautions and the need for primary care follow-up in the next 24-72 hours. - Vital Signs Vital signs: Temp Pulse Resp BP Pulse Ox 97.7 F 86 16 134/78 H 99 07/06/17 06:54 07/06/17 06:54 07/06/17 06:54 07/06/17 06:54 07/06/17 06:54 Discharge - Discharge Clinical Impression: Left acute otitis media, Condition: Good Disposition: ADMITTED OBSERVATION Instructions: Acetaminophen, Otitis Media ([facility]) Additional Instructions: You have been diagnosed with an ear infection. Please take antibiotic as directed. eat yogurt to prevent loose stool. Take otc antipyretics as needed for any pain or fever. Follow-up with your PCP as needed. Return if becomes lethargic, has persistent vomiting, facial swelling, worsening pain despite antibiotics, or any other symptoms that are concerning to you, return to ER immediately. Return immediately for any new or worsening symptoms. Follow up with primary care provider, call tomorrow to make followup appointment. Prescriptions: Amoxicillin Trihydrate [Amoxil 500 mg Capsule] 500 mg PO TID #30 capsule Referrals: ROSE SPENCER DO [NO LOCAL MD] - Follow up as needed HANNY ALVARADO MD [ACTIVE STAFF] - Follow up as needed
== END 2017-07-06 07:30 | disposition home or self-care (01) ==
LOC: ER 06:48
DX: O26.891 Other specified pregnancy related conditions, first trimester (principal); H66.92 Otitis media, unspecified, left ear; H92.02 Otalgia, left ear; Z3A.10 10 weeks gestation of pregnancy; Z87.891 Personal history of nicotine dependence; J45.909 Unspecified asthma, uncomplicated
CPT/HCPCS: 99282